=== PATIENT | male | born 1945 | race African-American/Black ===

== ENCOUNTER 2024-12-29 08:03 | Day surgery (SDC) | payer SELFPAY ==
[2024-12-29] VITALS (8 sets, daily range): BP systolic 102–146; BP diastolic 64–88; PULSE 50–89; RESP 16–20; TEMP 36.1–36.6; O2SAT 95–100; BMI 23.8
[2024-12-29 08:22] LABS: Prothrombin Time Fingerstick 12.7 SEC (11.7-14.9)
--- NOTE | 2024-12-29 08:30 | PCM.PRE.AN2 ---
ASA Classification* ASA Classification ASA Classification: 2 Assessment & Plan Anesthesia* Anesthesia Assessment Anesthesia Assessment: Discussed sedation and/or anesthesia options, risks, benefits, and alternatives with patient/parents/legal guardian/POA. Questions invited. The patient/parents/legal guardian/POA seems to understand and agrees to proceed with anesthesia plan. Reviewed the physical assessment, medical history, allergy history and patient home medications list prior to surgery/procedure/anesthetic and documented any changes. Performed airway and anesthesia risk assessments. 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 When Was Last Pacemaker Check QUESTION #4 FULL TEXT: You/Your Family Experience fever (hyperthermia) with Anesthesia Last Oral Intake Last Oral intake: Last Oral Intake NPO since Meds taken in AM with sips of water? Meds patient instructed to take am of surgery PONV PONV - bag making machine operator: PONV - bag making machine operator Female No 12/25/24 12:36 HX of Motion Sickness No 12/25/24 12:36 HX of N/V After Surgery No 12/25/24 12:36 Non-Smoker Yes 12/25/24 12:36 Duration of Surgery greater No 12/25/24 12:36 than 60 minutes Number of Risk Factors 1 12/25/24 12:36 PONV Score Low Risk 12/25/24 12:36 Height & Weight Height & Weight: Anesthesia: Height & Weight Height 5 ft 8 in 12/23/24 14:07 Respiratory Assessment Respiratory Assessment - bag making machine operator: Respiratory Tract Infection Hx - bag making machine operator Hx Respiratory Tract Infection No 12/25/24 12:36 STOP Sleep Apnea STOP Sleep Apnea - bag making machine operator: STOP Sleep Apnea - bag making machine operator Hx Hypertension Yes: ON MEDS 12/25/24 12:36 Hx Sleep Apnea No 12/25/24 12:36 CPAP BIPAP Do you snore loudly (louder No 12/25/24 12:36 than talking or can be heard Do you often feel tired/ No 12/25/24 12:36 fatigued/ sleepy during daytime? Has anyone observed you stop No 12/25/24 12:36 breathing during sleep? STOP Results Negative 12/25/24 12:36 QUESTION #5 FULL TEXT : Do you snore loudly (louder than talking or can be heard through closed doors)? 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 Specify any problems Hx of Preganancy in last 3 N/A 12/25/24 12:36 Months Nurse Filling Out Transfusion FAUZIA 12/25/24 12:36 & Questions: Date: 12/25/24 12/25/24 12:36 Time: 12:38 12/25/24 12:36 Patient unable to answer at this time (ie. confused, unrespo /Reproduction History /Reproductive History - bag making machine operator: /Reproductive Hx- bag making machine operator Hx Now No 12/25/24 12:36 Gestational Age (in weeks): EDC: Hx Hx Para Hx Section SAB No 12/25/24 12:36 Active Medications Active Medications: Current Medications Generic Name Dose Route Start Last Admin Trade Name Freq PRN Reason Stop Dose Admin Lactated Ringer's 1,000 mls @ 15 mls/hr 12/29/24 08:30 IV .Q48H [facility] PFSH Medical History Hx of thrombosis of lower extremity Wears hearing aid Dietary restriction Fatty liver Prostate disease Easy bruising Degenerative disc disease Non-smoker Abnormal CT of the abdomen Arthritis HTN (hypertension) Home Medications ?Medication ?Instructions ?Recorded ?Last Taken ?Type ascorbic acid (vitamin C) 500 mg 500 mg PO .QD 12/23/24 Unknown History capsule doxazosin 2 mg tablet (Cardura) 2 mg PO QDAY 12/23/24 Unknown History tamsulosin 0.4 mg capsule 0.4 mg PO QDAY 12/23/24 Unknown History valsartan 40 mg tablet 20 mg PO QDAY 12/23/24 Unknown History warfarin 4 mg tablet 4 mg PO .QD 12/25/24 Unknown History warfarin 5 mg tablet 5 mg PO .QD 12/25/24 Unknown History Allergy/AdvReac Type Severity Reaction Status Date / Time No Known Allergies Allergy Verified 12/25/24 12:22 Family History Mother Colon cancer Diabetes Surgical History Hx of bilateral cataract extraction Social History Smoking Status: Never smoker alcohol intake: never Review of Systems (Anesthesia) ROS Narrative System reviewed and no additional complaints, except as documented.
[2024-12-29 08:48] LABS: International Normalized Ratio 1.1; Prothrombin Time (Protime)PT. 14.6 SECONDS (11.7-14.9)
[2024-12-29] MEDS: Lactated Ringers 1,000 ML 15 ML IV (09:08)
--- NOTE | 2024-12-29 09:23 | PCM.HP.STD ---
HPI - General General Date of Admission: 12/29/24 Date of Service: 12/29/24 Chief Complaint: abnormal CT HPI Narrative Patient is a 79-year-old male who is being seen today for colonoscopy. He underwent a recent CT scan of the abdomen which revealed a questionable mass in the sigmoid colon along with some inflammatory changes involving the small bowel as well. Clinically he states that he is doing fine and not really having any issues or problems. He has never had a previous colonoscopy. No family history of colon cancer that he is aware of [facility] Medical History Hx of thrombosis of lower extremity Wears hearing aid Dietary restriction Fatty liver Prostate disease Easy bruising Degenerative disc disease Non-smoker Abnormal CT of the abdomen Arthritis HTN (hypertension) Home Medications ?Medication ?Instructions ?Recorded ?Last Taken ?Type ascorbic acid (vitamin C) 500 mg 500 mg PO .QD 12/23/24 Unknown History capsule doxazosin 2 mg tablet (Cardura) 2 mg PO QDAY 12/23/24 Unknown History tamsulosin 0.4 mg capsule 0.4 mg PO QDAY 12/23/24 Unknown History valsartan 40 mg tablet 20 mg PO QDAY 12/23/24 Unknown History warfarin 4 mg tablet 4 mg PO .QD 12/25/24 12/23/24 History warfarin 5 mg tablet 5 mg PO .QD 12/25/24 12/23/24 History Allergy/AdvReac Type Severity Reaction Status Date / Time No Known Allergies Allergy Verified 12/29/24 09:02 Family History Mother Colon cancer Diabetes Surgical History Hx of bilateral cataract extraction Social History Smoking Status: Never smoker alcohol intake: never Vital Signs Vital Signs Vital Signs: 12/29/24 09:05 12/29/24 09:05 Temperature 97.8 F Temperature Source Temporal Pulse Rate 60 Respiratory Rate 16 Respiratory Pattern Normal Blood Pressure 146/83 H Blood Pressure Mean 104 Blood Pressure Source Monitor Blood Pressure Position Sitting Blood Pressure Location Right Arm Pulse Ox 100 Oxygen Delivery Method Room Air Weight Weight: 157 lb 3.033 oz Body Mass Index (BMI) 23.8 Physical Exam Const alert, oriented x3 and no apparent distress Results Lab / Micro Data Labs: Laboratory Results - last 24 hr 12/29/24 08:17: POC PT 12.7, INR 1.0 12/29/24 08:29: PT 14.6, INR 1.1 Assessment & Plan Assessment/Plan (1) Abnormal CT of the abdomen: PLAN: Plan colonoscopy today
--- NOTE | 2024-12-29 09:30 | COLBX_PTH ---
PATIENT: PUMA CAMPOS LOC: EN U#:[id number] AGE/SX: 79/M ROOM: RE12/29/[address]: Dr. Fredy Hurt MD : 1945 BED: DIS: 12/29/2024 SPEC #: [id number] RECD: 12/29/24 11:14 STATUS: STEVEN BRADFORD #: [id number] SHAHAB: 12/29/24 09:[address]: Fredy Hurt DEPT: SURGICAL PATHOLOGY RECD BY: Murray Bray ENTERED: 12/29/24 11:49 SP TYPE: COLON BX OTHR DR: Mali Morris, MESS ATTENDANT CREW-C Tissues: A - Ascending colon B - Transverse colon C - Sigmoid colon biopsy D - Sigmoid colon biopsy Procedures: Surgery Specimen Level IV HEADER OPERATION: Colonoscopy and biopsy and endoscopic tattoo, polypectomy PRE-OP DIAGNOSIS: Abnormal CT scan of abdomen TISSUE SUBMITTED: A- Ascending colon polyp, B- Transverse colon polyp, C- Sigmoid colon biopsy, D- Sigmoid mass biopsy MICROSCOPIC DIAGNOSIS A. Large intestine, ascending polyp, biopsies: * Tubular adenoma B. Large intestine, transverse polyp: * Inflammatory polyp C. Large intestine, sigmoid polyp: * Tubular adenoma D. Large intestine, sigmoid mass: * Tubular adenoma with focal villous like features MICROSCOPIC DESCRIPTION Slides are reviewed. GROSS DESCRIPTION A. Received in fixative is one container labeled with the patient's name and designated Ascending colon polyp. The specimen consists of multiple irregular fragments of light delgado tissue that in aggregate measure 1.2 x 0.7 x 0.2 cm. The specimen is totally submitted in one cassette. B. Received in fixative is one container labeled with the patient's name and designated Transverse colon polyp. The specimen consists of two irregular fragments of light delgado tissue that in aggregate measure 0.7 x 0.5 x 0.2 cm. The specimen is totally submitted in one cassette. C. Received in fixative is one container labeled with the patient's name and designated Sigmoid colon polyp. The specimen consists of two irregular fragments of light delgado tissue that in aggregate measure 0.7 x 0.5 x 0.2 cm. The specimen is totally submitted in one cassette. D. Received in fixative is one container labeled with the patient's name and designated Sigmoid mass biopsy. The specimen consists of multiple irregular fragments of light delgado tissue that in aggregate measure 1.3 x 0.5 x 0.2 cm. The specimen is totally submitted in one cassette. 12/29/2024 [facility]:[id number]
--- NOTE | 2024-12-29 10:26 | PCM.POST.ANE ---
Anesthesia: Postop Eval I Current Vital Signs Temperature: 98 F Pulse Rate: 89 Blood Pressure: 127/88 Respiratory Rate: 20 Pulse Ox: 95 Assessment Airway patent: Yes Spontaneous unlabored respirations: Yes nausea: No Vomiting: No Anesthesia Complication: No Fluid Hydration Crystalloid volume administer (ml): 400 Total IV fluid infused: 400 Progress Note Anesthesia document: Postop Eval 1 completed: Yes
--- NOTE | 2024-12-29 10:27 | OP.COLON_ITS ---
Patient Name: Abelardo Kirkland Procedure Date: 12/29/2024 9:23 AM Date of : 1945 Age: 79 Procedure: Colonoscopy Indications: Abnormal CT of the GI tract Providers: Fredy Hurt MD Referring MD: Fredy Hurt MD Medicines: Monitored Anesthesia Care Patient Profile: Refer to note in patient chart for documentation of history and physical. Last Colonoscopy: none. The patient's first colonoscopy is today. Complications: No immediate complications. Estimated blood loss: Minimal. Procedure: Pre-Anesthesia Assessment: - Prior to the procedure, a History and Physical was performed, and patient medications and allergies were reviewed. The patient's tolerance of previous anesthesia was also reviewed. The risks and benefits of the procedure and the sedation options and risks were discussed with the patient. All questions were answered, and informed consent was obtained. Prior Anticoagulants: The patient has taken no anticoagulant or antiplatelet agents. ASA Grade Assessment: II - A patient with mild systemic disease. After reviewing the risks and benefits, the patient was deemed in satisfactory condition to undergo the procedure. After I obtained informed consent, the scope was passed under direct vision. Throughout the procedure, the patient's blood pressure, pulse, and oxygen saturations were monitored continuously. The colonoscope was introduced through the anus and advanced to the cecum, identified by appendiceal orifice and ileocecal valve. The ileocecal valve, appendiceal orifice, and rectum were photographed. The entire colon was examined. Moderate Sedation: See the other procedure note for documentation of moderate sedation with intraservice time. Scope In: 9:33:42 AM Scope Withdrawal Time 0 hours 27 minutes 31 seconds Scope Out: 10:15:34 AM Total Procedure Duration Time 0 hours 41 minutes 52 seconds Findings: The perianal and digital rectal examinations were normal. Multiple small-mouthed diverticula were found in the sigmoid colon. A 5 mm polyp was found in the ascending colon. The polyp was pedunculated. The polyp was removed with a hot snare. Resection and retrieval were complete. Verification of patient identification for the specimen was done by the nurse using the patient's name, date and medical record number. Estimated blood loss was minimal. A 3 mm polyp was found in the transverse colon. The polyp was semi-pedunculated. The polyp was removed with a cold biopsy forceps. Resection and retrieval were complete. Verification of patient identification for the specimen was done by the nurse using the patient's name, date and medical record number. Estimated blood loss: none. A 3 mm polyp was found in the sigmoid colon. The polyp was semi-sessile. The polyp was removed with a cold biopsy forceps. Resection and retrieval were complete. Verification of patient identification for the specimen was done by the nurse using the patient's name, date and medical record number. Estimated blood loss was minimal. A 30 mm polyp/Mass was found in the sigmoid colon (@ 40cm) . The polyp was semi-pedunculated. Biopsies were taken with a cold forceps for histology. Verification of patient identification for the specimen was done by the nurse using the patient's name, date and medical record number. Area was tattooed with an injection of 4 mL of Spot (carbon black). The exam was otherwise without abnormality. Impression: - Diverticulosis in the sigmoid colon. - One 5 mm polyp in the ascending colon, removed with a hot snare. Resected and retrieved. - One 3 mm polyp in the transverse colon, removed with a cold biopsy forceps. Resected and retrieved. - One 3 mm polyp in the sigmoid colon, removed with a cold biopsy forceps. Resected and retrieved. - One 30 mm polyp/ Mass (not removed) in the sigmoid colon. Biopsied. Tattooed. - The examination was otherwise normal. Recommendation: - Discharge patient to home (ambulatory). - High fiber diet PRN. - Await pathology results. - Repeat colonoscopy in 1 year for surveillance. - Return to my office in 1 week. - Continue present medications. Fredy Hurt MD 12/29/2024 10:27:12 AM This report has been signed electronically. Number of Addenda: 1 Note Initiated On: 12/29/2024 9:23 AM Addendum Number: 1 Addendum Date: 01/13/2025 3:33:11 PM Fredy Hurt MD 01/13/2025 3:33:22 PM This report has been signed electronically.
--- NOTE | 2024-12-29 10:27 | OP.CCLET_ITS ---
01/13/2025 Jim Calderon Re : Colonoscopy procedure for Abelardo Kirkland Dear Arturo This procedure was performed on Sunday, December 29, 2024. My impressions and recommendations are as follows: Impressions : - Diverticulosis in the sigmoid colon. - One 5 mm polyp in the ascending colon, removed with a hot snare. Resected and retrieved. - One 3 mm polyp in the transverse colon, removed with a cold biopsy forceps. Resected and retrieved. - One 3 mm polyp in the sigmoid colon, removed with a cold biopsy forceps. Resected and retrieved. - One 30 mm polyp/ Mass (not removed) in the sigmoid colon. Biopsied. Tattooed. - The examination was otherwise normal. Recommendations : - Discharge patient to home (ambulatory). - High fiber diet PRN. - Await pathology results. - Repeat colonoscopy in 1 year for surveillance. - Return to my office in 1 week. - Continue present medications. My findings are described in the full procedure note, which is enclosed. If I can be of further assistance, please feel free to contact me at . Sincerely, Fredy Hurt MD 12/29/2024 10:27:12 AM This report has been signed electronically.
--- NOTE | 2024-12-29 10:34 | POSTOPAN2_ITS ---
Anesthesia Postop Eval I Sum Postop Eval Completion status Anesthesia document: Postop Eval 1 completed: Yes Anesthesia Postop Eval I Summary Anesthesia Postop Eval I Summary: Anesthesia Postop Eval I: Assessment Summary Airway patent Yes 12/29/24 10:26 COMPUTATIONAL THEORY SCIENTIST.CSIR Spontaneous unlabored Yes 12/29/24 10:26 COMPUTATIONAL THEORY SCIENTIST.CSIR respirations Mental status nausea No 12/29/24 10:26 COMPUTATIONAL THEORY SCIENTIST.CSIR Vomiting No 12/29/24 10:26 COMPUTATIONAL THEORY SCIENTIST.CSIR Anesthesia Postop Eval I: Fluid Summary Crystalloid volume administer 400 12/29/24 10:26 COMPUTATIONAL THEORY SCIENTIST.CSIR (ml) Colloids volume administered ( ml) Blood Product volume administered (ml) Total IV fluid infused 400 12/29/24 10:26 COMPUTATIONAL THEORY SCIENTIST.CSIR Anesthesia Postop Eval I: Summary Notes Anesthesia Complication No 12/29/24 10:26 COMPUTATIONAL THEORY SCIENTIST.CSIR Anesthesia Complication Comment: Post-operative progress note Anesthesia: Postop Eval II Evaluation Mental status: Awake Pain Level: 0 nausea: No Vomiting: No
--- NOTE | 2024-12-29 10:34 | PCM.POSTANE2 ---
Anesthesia Postop Eval I Sum Postop Eval Completion status Anesthesia document: Postop Eval 1 completed: Yes Anesthesia Postop Eval I Summary Anesthesia Postop Eval I Summary: Anesthesia Postop Eval I: Assessment Summary Airway patent Yes 12/29/24 10:26 MOTOR VEHICLE TECHNICIAN.CSIR Spontaneous unlabored Yes 12/29/24 10:26 MOTOR VEHICLE TECHNICIAN.CSIR respirations Mental status nausea No 12/29/24 10:26 MOTOR VEHICLE TECHNICIAN.CSIR Vomiting No 12/29/24 10:26 MOTOR VEHICLE TECHNICIAN.CSIR Anesthesia Postop Eval I: Fluid Summary Crystalloid volume administer 400 12/29/24 10:26 MOTOR VEHICLE TECHNICIAN.CSIR (ml) Colloids volume administered ( ml) Blood Product volume administered (ml) Total IV fluid infused 400 12/29/24 10:26 MOTOR VEHICLE TECHNICIAN.CSIR Anesthesia Postop Eval I: Summary Notes Anesthesia Complication No 12/29/24 10:26 MOTOR VEHICLE TECHNICIAN.CSIR Anesthesia Complication Comment: Post-operative progress note Anesthesia: Postop Eval II Evaluation Mental status: Awake Pain Level: 0 nausea: No Vomiting: No
== END 2024-12-29 11:36 | disposition home or self-care (01) ==
LOC: EN 08:09 → AC 08:12
PROVIDERS: Referring Provider Surgery; Visit Provider Surgery
PROC: 0DJD8ZZ Inspection of Lower Intestinal Tract, Via Natural or Artificial Opening Endoscopic (ICD-10-PCS; CPT 45378; principal; 2024-12-29 09:25)
DX: D12.5 Benign neoplasm of sigmoid colon (principal); K63.5 Polyp of colon; I10 Essential (primary) hypertension; Z79.01 Long term (current) use of anticoagulants; K57.30 Diverticulosis of large intestine without perforation or abscess without bleeding; D12.2 Benign neoplasm of ascending colon; Z86.718 Personal history of other venous thrombosis and embolism
CPT/HCPCS: 45380; 45385; 45381; 36415; 36416; 85610; 88305; A4648; J2405